=== PATIENT | female | born 1990 | race American Indian/Alaskan Native ===

== ENCOUNTER 2018-09-02 19:02 | Emergency (ER) | payer MEDICAID ==
--- NOTE | 2018-09-02 19:11 | Emergency Department Report ---
Chief Complaint: Syncope Stated Complaint: SHAKY/FELL OUT Time Seen by Provider: 09/02/18 19:10 - HPI History of Present Illness: CC STARTED SHAKING AT WORK TODAY. BS 94 ??? 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 Due to findings the following was ordered: ED Disposition for MSE Condition: Stable
[2018-09-02 19:16] VITALS: BP 148/88
[2018-09-02 19:40] LABS: Basophils % (Auto) 0.5 % (0.0-1.8); Eosinophils # (Auto) 0.1 K/mm3 (0.0-0.4); Hematocrit 42.9 % (30.3-42.9); Hemoglobin 14.6 gm/dl (10.1-14.3); Lymphocytes # (Auto) 2.1 K/mm3 (1.2-5.4); Lymphocytes % (Auto) 30.2 % (13.4-35.0); Mean Corpuscular HGB Conc 34 % (30-34); Mean Corpuscular Volume 92 fl (79-97); Monocytes # (Auto) 0.7 K/mm3 (0.0-0.8); Monocytes % (Auto) 9.4 % (0.0-7.3); Platelet Count 226 K/mm3 (140-440); Red Blood Count 4.66 M/mm3 (3.65-5.03); Red Cell Distribution Width 13.6 % (13.2-15.2)
[2018-09-02 19:47] LABS: Bilirubin,Urine NEG (Negative); Blood,Urine NEG (Negative); Color,Urine Straw (Yellow); Mucus,Urine FEW /HPF; Protein,Urine <15 mg/dL mg/dL (Negative); Urobilinogen,Urine < 2.0 mg/dL (<2.0)
[2018-09-02 19:50] LABS: Amphetamine Screen,Urine PRESUMPTIVE NEGATIVE; Benzodiazepines Screen,Urine PRESUMPTIVE NEGATIVE; Cannabinoid Screen,Urine PRESUMPTIVE NEGATIVE; Cocaine Screen,Urine PRESUMPTIVE NEGATIVE; Methadone Screen,Urine PRESUMPTIVE NEGATIVE; Opiate Screen,Urine PRESUMPTIVE NEGATIVE
[2018-09-02 19:56] LABS: Creatine Kinase MB 1.8 ng/mL (0.0-4.0)
[2018-09-02 19:58] LABS: Alanine Aminotransferase 11 units/L (7-56); Albumin 4.5 g/dL (3.9-5); BUN/Creatinine Ratio 25; Blood Urea Nitrogen 20 mg/dL (7-17); Calcium 9.5 mg/dL (8.4-10.2); Hemolysis Index 8
[2018-09-02 20:07] LABS: HCG Qualitative,Urine Negative (Negative)
[2018-09-02] MEDS ORDERED: ATIVAN IV ONE (21:26)
[2018-09-02] MEDS ORDERED: NACL 0.9% 1000 ML 1,000 ML IV ONE (21:28)
[2018-09-02] MEDS ORDERED: KEPPRA 1,000 MG/NS 0.75% 100ML 1,000 MG/100 ML BAG IV ONE (21:28)
--- NOTE | 2018-09-02 21:33 | Emergency Department Report ---
HPI - General Chief Complaint: Syncope Time Seen by Provider: 09/02/18 19:10 - [facility] HPI: [place] [address] The patient is 28-year-old female presenting with chief complaint of possible seizure/LOC. The patient was at work in the bathroom when she states began trem [place]. The mother at bedside states that she received a phone call from the patient's coworkers stating that she had passed out and had a seizure. Patient has no history of seizure. Patient has intermittent tremors but denies other complaints. Patient denies chest pain, headache or shortness of breath. Patient denies preceding nausea vomiting or diarrhea. Location: [See above] Duration: [See above] Quality: Tremors Severity: [See above] Modifying factors: [see above] Context: [see above] Mode of transportation: [not driving] ED Past Medical Hx - Past Medical History Previous Medical History?: Yes Additional medical history: Cerebral Palsy - Surgical History Past Surgical History?: No - Family History Family history: no significant - Social History Smoking Status: Never Smoker Substance Use Type: None (denies illicit drug use) - Medications Home Medications: Home Medications Medication Instructions Recorded Confirmed Last Taken Type Cephalexin [Keflex] 500 mg PO QID #20 capsule 05/30/13 10/08/13 Unknown Rx Ondansetron [Zofran] 4 mg PO Q8HR PRN #12 tablet 05/30/13 10/08/13 Unknown Rx Pnv95/Ferrous Fumarate/FA 1 tab PO DAILY 05/30/13 10/08/13 05/30/13 07:30 History [ Multivitamins Tablet] ED Review of Systems ROS: Stated complaint: SHAKY/FELL OUT Other details as noted in HPI Constitutional: no symptoms reported Eyes: denies: eye pain ENT: denies: throat pain Respiratory: denies: shortness of breath Cardiovascular: denies: chest pain Endocrine: no symptoms reported Gastrointestinal: denies: abdominal pain Genitourinary: denies: dysuria Musculoskeletal: denies: back pain Neurological: other (tremors). denies: headache Physical Exam - Physical Exam Vital Signs: Vital Signs 09/02/18 09/02/18 19:15 20:55 Temperature 98.4 F Pulse Rate 85 Respiratory 18 16 Rate Blood Pressure 148/88 O2 Sat by Pulse 100 Oximetry Physical Exam: GENERAL: The patient is well-developed well-nourished female lying on stretcher not appearing to be in acute distress. Tremors HEENT: Normocephalic. Atraumatic. Extraocular motions are intact. Patient has moist mucous membranes. NECK: Supple. Trachea midline CHEST/LUNGS: Clear to auscultation. There is no respiratory distress noted. HEART/CARDIOVASCULAR: Regular. There is no tachycardia. There is no gallop rub or murmur. ABDOMEN: Abdomen is soft, nontender. Patient has normal bowel sounds. There is no abdominal distention. SKIN: There is no rash. There is no edema. There is no diaphoresis. NEURO: The patient is awake, alert, and oriented. The patient is cooperative. The patient has no focal neurologic deficits. The patient has normal speech. Cranial nerves II through XII grossly intact, no drift. Occasional tremors MUSCULOSKELETAL: There is no evidence of acute injury. ED Course Vital Signs 09/02/18 09/02/18 19:15 20:55 Temperature 98.4 F Pulse Rate 85 Respiratory 18 16 Rate Blood Pressure 148/88 O2 Sat by Pulse 100 Oximetry - Reevaluation(s) Reevaluation #1: 09/02/18 22:02 Patient refused all medications and CT scan evaluation. Patient leaving AGAINST MEDICAL ADVICE ED Medical Decision Making - Lab Data Result diagrams: 09/02/18 19:18 09/02/18 19:18 Laboratory Tests 09/02/18 09/02/18 09/02/18 19:18 19:18 19:30 WBC 6.9 RBC 4.66 Hgb 14.6 H Hct 42.9 MCV 92 MCH 31 MCHC 34 RDW 13.6 Plt Count 226 Lymph % (Auto) 30.2 [place] % (Auto) 9.4 H Eos % (Auto) 1.0 Baso % (Auto) 0.5 Lymph # 2.1 [place] # 0.7 Eos # 0.1 Baso # 0.0 Seg Neutrophils % 58.9 Seg Neutrophils # 4.0 D-Dimer Sodium 134 L Potassium 4.5 Chloride 100.3 Carbon Dioxide 25 Anion Gap 13 BUN 20 H Creatinine 0.8 Estimated GFR > 60 BUN/Creatinine Ratio 25 Glucose 102 H Calcium 9.5 Total Bilirubin 0.70 AST 18 ALT 11 Alkaline Phosphatase 68 Total Creatine Kinase 127 CK-MB (CK-2) 1.8 CK-MB (CK-2) Rel Index 1.4 Total Protein 7.6 Albumin 4.5 Albumin/Globulin Ratio 1.5 Urine Color Straw Urine Turbidity Clear Urine pH 6.0 Ur Specific [place] 1.011 Urine Protein <15 mg/dl Urine Glucose (UA) Neg Urine Ketones Neg Urine Blood Neg Urine Nitrite Neg Urine Bilirubin Neg Urine Urobilinogen < 2.0 Ur Leukocyte Esterase Neg Urine WBC (Auto) 1.0 Urine RBC (Auto) 2.0 U Epithel Cells (Auto) 6.0 Urine Mucus Few Urine HCG, Qual Negative Urine Opiates Screen Urine Methadone Screen Ur Barbiturates Screen Ur Phencyclidine Scrn Ur Amphetamines Screen U Benzodiazepines Scrn Urine Cocaine Screen U Marijuana (THC) Screen Drugs of Abuse Note 09/02/18 09/02/18 19:30 21:33 WBC RBC Hgb Hct MCV MCH MCHC RDW Plt Count Lymph % (Auto) [place] % (Auto) Eos % (Auto) Baso % (Auto) Lymph # [place] # Eos # Baso # Seg Neutrophils % Seg Neutrophils # D-Dimer 149.77 Sodium Potassium Chloride Carbon Dioxide Anion Gap BUN Creatinine Estimated GFR BUN/Creatinine Ratio Glucose Calcium Total Bilirubin AST ALT Alkaline Phosphatase Total Creatine Kinase CK-MB (CK-2) CK-MB (CK-2) Rel Index Total Protein Albumin Albumin/Globulin Ratio Urine Color Urine Turbidity Urine pH Ur Specific [place] Urine Protein Urine Glucose (UA) Urine Ketones Urine Blood Urine Nitrite Urine Bilirubin Urine Urobilinogen Ur Leukocyte Esterase Urine WBC (Auto) Urine RBC (Auto) U Epithel Cells (Auto) Urine Mucus Urine HCG, Qual Urine Opiates Screen Presumptive negative Urine Methadone Screen Presumptive negative Ur Barbiturates Screen Presumptive negative Ur Phencyclidine Scrn Presumptive negative Ur Amphetamines Screen Presumptive negative U Benzodiazepines Scrn Presumptive negative Urine Cocaine Screen Presumptive negative U Marijuana (THC) Screen Presumptive negative Drugs of Abuse Note Disclamer - EKG Data -: EKG Interpreted by Nm EKG shows normal: sinus rhythm Rate: normal - EKG Data When compared to previous EKG there are: previous EKG unavailable Interpretation: other (no ischemic changes seen) - Differential Diagnosis new-onset seizures, syncope, PE, dehydration Critical care attestation.: If time is entered above; I have spent that time in minutes in the direct care of this critically ill patient, excluding procedure time. ED Disposition Clinical Impression: Seizure, Syncope Disposition: DC- LEFT AGAINST MED ADVICE Is pt being admited?: No Does the pt Need Aspirin: No Condition: Undetermined Instructions: Syncope (ED) Time of Disposition: 22:03 (patient leaving AMA)
[2018-09-02 22:25] LABS: Free T4 (Free Thyroxine) 1.16 ng/dL (0.76-1.46)
== END 2018-09-02 22:32 | disposition left against medical advice (07) ==
LOC: ED 19:02
DX: R56.9 Unspecified convulsions (principal); R55 Syncope and collapse
CPT/HCPCS: 36415; 80053; 80307; 81001; 81025; 82550; 82553; 83735; 84439; 84443; 85025; 85379; 93005; 93010; 99284; J1953; J2060; J7030

== ENCOUNTER 2020-11-29 19:21 | Emergency (ER) | payer MEDICAID ==
[2020-11-29 21:58] VITALS: BP 119/84
--- NOTE | 2020-11-29 23:11 | Emergency Department Report ---
ED Back Pain/Injury HPI - General Chief Complaint: Back Pain/Injury Stated Complaint: FEELING FAINT/ALMOST PASSED OUT Time Seen by Provider: 11/29/20 22:40 Source: patient Limitations: No Limitations - History of Present Illness Initial Comments: Patient is a 30-year-old female who presents emergency room with complaints of left lower back pain that radiates down her left leg that began approximately a month ago. She states that the pain is becoming more frequent. She states that it hurts to sit on that side or when she first stands up. She denies any fall or injury. She denies any fever, nausea, vomiting, diarrhea, urinary symptoms, numbness, weakness, bowel or bladder incontinence. No past medical history. No allergies to medications. Last menstrual cycle 11/09/2020, she denies any possibility . - Related Data Home Medications Medication Instructions Recorded Confirmed Last Taken Pnv95/Ferrous Fumarate/FA 1 tab PO DAILY 05/30/13 10/08/13 05/30/13 07:30 [ Multivitamins Tablet] Previous Rx's Medication Instructions Recorded Last Taken Type Cephalexin [Keflex] 500 mg PO QID #20 capsule 05/30/13 Unknown Rx Ondansetron [Zofran] 4 mg PO Q8HR PRN #12 tablet 05/30/13 Unknown Rx Menthol/Camphor [[place] 1 applicatio TP BID #18 oint...g. 11/29/20 Unknown Rx Ointment] Naproxen 375 mg PO BID PRN #20 tablet. 11/29/20 Unknown Rx methOCARBAMOL [Robaxin TAB] 500 mg PO BID PRN #20 tab 11/29/20 Unknown Rx Allergies Allergy/AdvReac Type Severity Reaction Status Date / Time No Known Allergies Allergy Verified 10/07/13 14:57 ED Review of Systems ROS: Stated complaint: FEELING FAINT/ALMOST PASSED OUT Other details as noted in HPI Comment: All other systems reviewed and negative ED Past Medical Hx - Past Medical History Previous Medical History?: No Additional medical history: Cerebral Palsy - Surgical History Past Surgical History?: Yes Additional Surgical History: left eye. head - Social History Smoking Status: Never Smoker Substance Use Type: None (denies illicit drug use) - Medications Home Medications: Home Medications Medication Instructions Recorded Confirmed Last Taken Type Cephalexin [Keflex] 500 mg PO QID #20 capsule 05/30/13 10/08/13 Unknown Rx Ondansetron [Zofran] 4 mg PO Q8HR PRN #12 tablet 05/30/13 10/08/13 Unknown Rx Pnv95/Ferrous Fumarate/FA 1 tab PO DAILY 05/30/13 10/08/13 05/30/13 07:30 History [ Multivitamins Tablet] Menthol/Camphor [[place] 1 applicatio TP BID #18 oint...g. 11/29/20 Unknown Rx Ointment] Naproxen 375 mg PO BID PRN #20 tablet. 11/29/20 Unknown Rx methOCARBAMOL [Robaxin TAB] 500 mg PO BID PRN #20 tab 11/29/20 Unknown Rx ED Physical Exam - General Limitations: No Limitations General appearance: alert, in no apparent distress - Head Head exam: Present: atraumatic, normocephalic - Eye Eye exam: Present: normal appearance - ENT ENT exam: Present: mucous membranes moist - Neck Neck exam: Present: normal inspection, full ROM. Absent: tenderness, meningismus - Respiratory Respiratory exam: Present: normal lung sounds bilaterally. Absent: respiratory distress, wheezes, rales, rhonchi, stridor, chest wall tenderness, accessory muscle use, decreased breath sounds, prolonged expiratory - Cardiovascular Cardiovascular Exam: Present: regular rate, normal rhythm, normal heart sounds. Absent: systolic murmur, diastolic murmur, rubs, gallop - Back Exam Back exam: Present: normal inspection, full ROM, paraspinal tenderness (left lumbar paraspinal, no midline C-spine, T-spine or L-spine ttp, no step offs, no deformities ), other (pain with SLR of the left leg). Absent: vertebral tenderness - Neurological Exam Neurological exam: Present: alert, oriented X3, CN II-XII intact, normal gait. Absent: motor sensory deficit - Psychiatric Psychiatric exam: Present: normal affect, normal mood - Skin Skin exam: Present: warm, dry, intact ED Course Vital Signs 11/29/20 21:55 Temperature 98.3 F Pulse Rate 80 Respiratory 16 Rate Blood Pressure 119/84 O2 Sat by Pulse 100 Oximetry ED Medical Decision Making - Medical Decision Making Patient is a 30-year-old female who presents emergency room with complaints of left lower back pain that radiates down her left leg that began approximately a month ago. She states that the pain is becoming more frequent. She states that it hurts to sit on that side or when she first stands up. She denies any fall or injury. She denies any fever, nausea, vomiting, diarrhea, urinary symptoms, numbness, weakness, bowel or bladder incontinence. No past medical history. No allergies to medications. Last menstrual cycle 11/09/2020, she denies any possibility . Vitals are normal. On exam:left lumbar paraspinal, no midline C-spine, T-spine or L-spine ttp, no step offs, no deformities, pain with SLR of the left leg, no focal neuro deficits, normal gait. Symptoms and examination appear most consistent with sciatica, symptoms could also be related to muscle strain versus lumbar radiculopathy. Patient has no red flag warning signs of back pain, no trauma, no unexplained weight loss, no neuro deficits, age is not greater than 50, no fever, no IV drug use, no steroid use, no history of cancer. Patient given prescription for medications. Advised patient Please use medication as prescribed. Do not drive or operate machinery while taking muscle relaxer Robaxin. Follow-up with your primary care doctor. Follow-up with a spine doctor. May use ice pack, heating pad, rest, Epsom salt bath. Do not use ointment while using heat or ice. Return to emergency room for new or worsening symptoms. Critical care attestation.: If time is entered above; I have spent that time in minutes in the direct care of this critically ill patient, excluding procedure time. ED Disposition Clinical Impression: Low back pain Qualifiers: Chronicity: acute Back pain laterality: left Sciatica presence: without sciatica Qualified Code(s): M54.5 - Low back pain Disposition: DC-01 TO HOME OR SELFCARE Is pt being admited?: No Does the pt Need Aspirin: No Condition: Stable Instructions: Sciatica Additional Instructions: Please use medication as prescribed. Do not drive or operate machinery while taking muscle relaxer Robaxin. Follow-up with your primary care doctor. Follow-up with a spine doctor. May use ice pack, heating pad, rest, Epsom salt bath. Do not use ointment while using heat or ice. Return to emergency room for new or worsening symptoms. Prescriptions: Naproxen 375 mg PO BID PRN #20 tablet.dr PRN Reason: pain methOCARBAMOL [Robaxin TAB] 500 mg PO BID PRN #20 tab PRN Reason: muscle spasm/pain Menthol/Camphor [[place] Ointment] 1 applicatio TP BID #18 oint...g. Referrals: PRIMARY CARE, [Primary Care Provider] - 2-3 Days PATITO SHAIKH MD [Staff Physician] - 2-3 Days RAYMUNDO ESPINAL II, MD [Staff Physician] - 2-3 Days Forms: Work/School Release Form(ED) Time of Disposition: 23:08 Print Language: CANADIAN
== END 2020-11-29 23:30 | disposition home or self-care (01) ==
LOC: ED 19:21
DX: M54.5 Low back pain (principal); M79.602 Pain in left arm; Z98.890 Other specified postprocedural states; Z79.899 Other long term (current) drug therapy
CPT/HCPCS: 99282